=== PATIENT | female | born 1970 | race Caucasian/White ===

== ENCOUNTER → 2019-08-15 | Outpatient (CLI) | payer OTHER ==
[~2019-08-15] MED LIST: PERFLUTREN PROTEIN-A MICROSPHR 0.22 MG/ML 3 ML VIAL. IV ONE; REGADENOSON 0.4 MG/5 ML DISP.SYRIN. IV ONE
--- NOTE | 2019-08-18 07:09 | RAD ---
MR#: [id number] Account#: Date of Study: 08/16/2019 Ordering Physician: Referring Physician: ROBERTO GILLILAND Tech: RT Karena WoodallR) (N) APPROVED REPORT Test Type: Pharmacological Stress Nurse/Tech: Jazz Young RN Test Indications: Pre-Op Clearance for gastric bypass Cardiac History: Hypertension, High cholesterol, smoker Medications: See Electronic Medical Record Medical History: See Electronic Medical Record Resting ECG: ST Resting Heart Rate: 100 bpm Resting Blood Pressure: 141/72mmHg Pretest Chest Pain: No chest pain Nurse/Tech Notes S1S2, lungs CTA Consent: The procedure was explained to the patient in lay terms. Informed consent was witnessed. Serg eout was entered into [facility]. History and Stress Test performed by SEBASITEN Maldonado, EDINSON (R) (N) Pharm. Details Pharmacologic stress testing was performed using 0.4mg per 5ml of regadenoson given intravenously ove r 7-10 seconds. Stress Symptoms Dyspnea POST EXERCISE Reason for Termination: Infusion complete Max HR: 122 bpm Max Blood Pressure: 136/65mmHg Blood Pressure response to exercise: Normal blood pressure response during stress. Heart Rate response to exercise: Normal Chest Pain: No. Arrhythmia: No. ST Change: No. INTERPRETATION Stress EKG Conclusion: Baseline EKG showed sinus rhythm. No ischemic changes at peak stress. No arr hythmias. Imaging Protocol IMAGE PROTOCOL: Rest Tc-99m/stress Tc-99m 1 day Rest: Stress: Viability: Radiopharm.Tc99m LrxxkoexjWb89g Sestamibi Mmrs52aMu 34mCi Duration 15min. 15min. Img Date 08/15/2019 08/16/2019 Inj-Img Wvgy38sju. 60min. Rest Admin Site:IV - Right HandAdministrator:SEBASTIEN Maldonado ARRT (R)(N) Stress Admin Site: IV - Right HandAdministrator: SEBASTIEN Maldonado ARRT (R)(N) STRESS DATA End Diast. Vol.105.0mlAv. Heart Watd537.0bpm End Syst. Vol.28.0mlCO Index BSA0.0L/min Myocardial Ymoq762.0gEject. Kkvuanvc68.0% Stress Rates Pk. Fill Rate5.60EDV/secLVtime Pk. Fill 150.43msec Pk. Empty Rate4.87ESV/secLVtime Pk. Eject58.93msec 1/3 Pk. Fill0.40EDV/sec Stress Scores Regional WT1.00Summed WT6.00 Regional WM0.00Summed WM0.00 LV Perfusion Scintigraphic images showed fixed anterior wall defect most probably breast attenuation artifact. No other fixed or reversible defects seen. Wall Motion Normal left ventricle systolic function with ejection fraction calculated at 73%. LV Perf. Quant 17 Seg. SSS7.00 17 Seg. SRS10.00 17 Seg. SDS1.00 Stress Defect Extent (% LAD)13.10Rest Defect Extent (% LAD)45.00Rev. Defect Extent (% LAD)0.60 Stress Defect Extent (% LCX) 13.80Rest Defect Extent (% LCX)7.50Rev. Defect Extent (% LCX)2.50 Stress Defect Extent (% RCA)0.00Rest Defect Extent (% RCA)0.00Rev. Defect Extent (% RCA)0.00 Stress Defect Extent (% DE)10.20Rest Defect Extent (% DE)18.90Rev. Defect Extent (% DE)2.00 Conclusion 1. Regadenoson cardioisotope stress test showed breast attenuation artifact without any evidence of i schemia or infarct. 2. Normal left ventricular systolic function with ejection fraction calculated at 73%. 3. Low risk for cardiac events. Signed by : Mike Andres, Electronically Approved : 08/16/2019 12:32:43
== END | disposition home or self-care (01) ==
LOC: NM 07:45
PROVIDERS: ATTEND Internal Medicine Cardiovascular Disease
DX: Z01.810 Encounter for preprocedural cardiovascular examination (principal); R06.00 Dyspnea, unspecified
CPT/HCPCS: 78452; A9500; J2785

== ENCOUNTER → 2019-08-16 | Outpatient (CLI) | payer OTHER ==
[~2019-08-16] MED LIST changes: -REGADENOSON 0.4 MG/5 ML DISP.SYRIN. IV ONE
--- NOTE | 2019-08-16 10:26 | CARD ---
MR#: [id number] Date of Study: 08/16/2019 Ordering Physician: REGAN MEJIA, Referring Physician: Robbie FLOWERS: Veronika Sanchez APPROVED REPORT EXAM: Two-dimensional and M-mode echocardiogram with Doppler and color Doppler. Other Information Quality : PoorHR: 93bpm INDICATION Pre-Op Non STEMI Echo Enhancing Agent Indication: Endocardial border delineation Agent/Amount Used: Optison 2mL 2D DIMENSIONS Left Atrium(2D)2.9 (1.6-4.0cm)Aortic Root(2D)2.1 (2.0-3.7cm) LVOT Diameter1.6 (1.8-2.4cm) Aortic Valve AoV Peak John.131.8cm/sAoV VTI26.2cm AO Peak GR.6.9mmHgLVOT Peak John.132.5cm/s AO Mean GR.4mmHgAVA (VMAX)2.03cm2 Mitral Valve MV E Hljuvkiy29.5cm/sMV E Peak Gr.4mmHg MV DECEL [id number] A Ycdvnnsv47.5cm/s MV E Mean Gr.2mmHgE/A Ratio0.9 Pulmonary Valve PV Peak Nvnyjfun50.9cm/s Tricuspid Valve RAP [id number] LEFT VENTRICLE The left ventricle is normal size. There is normal left ventricular wall thickness. The left ventricu lar systolic function is normal and the ejection fraction is within normal range. The Ejection Fracti on is 55-60%. There is normal LV segmental wall motion. Transmitral Doppler flow pattern is Grade I-a bnormal relaxation pattern. RIGHT VENTRICLE The right ventricle is normal size. The right ventricular systolic function is normal. ATRIA The left atrium size is normal. The right atrium size is normal. AORTIC VALVE The aortic valve is not well visualized. Doppler and Color Flow revealed no significant aortic regurg itation. There is no significant aortic valvular stenosis. MITRAL VALVE The mitral valve is normal in structure and function. There is no mitral valve stenosis. Doppler and Color-flow revealed trace to mild mitral regurgitation. TRICUSPID VALVE The tricuspid valve is not well visualized. Doppler and Color Flow revealed trace to mild tricuspid r egurgitation. PULMONIC VALVE The pulmonic valve is not well visualized. Doppler and Color Flow revealed no pulmonic valvular regur gitation. GREAT VESSELS The aortic root is normal in size. The ascending aorta is normal in size. The IVC was not visualized. PERICARDIAL EFFUSION There is no pleural effusion. There is no evidence of significant pericardial effusion. Critical Notification Critical Value: No <Conclusion> The left ventricle is normal size. The left ventricular systolic function is normal and the ejection fraction is within normal range. The Ejection Fraction is 55-60%. Doppler and Color Flow revealed no significant aortic regurgitation. There is no significant aortic valvular stenosis. Doppler and Color-flow revealed trace to mild mitral regurgitation. Doppler and Color Flow revealed trace to mild tricuspid regurgitation. Signed by : Bao Jarrett MD Electronically Approved : 08/16/2019 10:26:27
== END | disposition home or self-care (01) ==
LOC: ECHO 07:34
PROVIDERS: ATTEND Internal Medicine Cardiovascular Disease
DX: Z01.810 Encounter for preprocedural cardiovascular examination (principal); I08.1 Rheumatic disorders of both mitral and tricuspid valves
CPT/HCPCS: 93017; C8929; Q9956; 96376

== ENCOUNTER 2021-10-11 04:50 | Emergency (ER) | payer SELFPAY ==
[~2021-10-11] VITALS: Ht 162.6 cm; Wt 77.3 kg
--- NOTE | 2021-10-11 08:07 | ED.ADGEN ---
General Adult EDM: Chief Complaint: ABDOMINAL PAIN HPI: HPI: Patient is a 50-year-old female who arrives ambulatory to the emergency department complaining of abdominal pain. Patient reports her pain began at approximately 2:00 this morning and has progressed since that time. Patient states that her pain is in the region of her diaphragm. Patient also states that her ovaries feel as if they are on fire. Patient states her pain is not subsided since this time and she is concerned. Despite her symptoms, she denies any fevers. She further denies any nausea or vomiting. Additionally she denies any diarrhea. Patient states if she sits upright her pain is worsened. She does deny however any chest pain. She is awake, alert and uncomfortable appearing. Review of Systems: Review of Systems: Constitutional: Denies fever or chills. [] Eyes: Denies change in visual acuity. [] HENT: Denies nasal congestion or sore throat. [] Respiratory: Denies cough or shortness of breath. [] Cardiovascular: Denies chest pain or edema. [] GI: Reports abdominal pain. Denies nausea, vomiting, bloody stools or diarrhea. [] : Denies dysuria. [] Musculoskeletal: Denies back pain or joint pain. [] Integument: Denies rash. [] Neurologic: Denies headache, focal weakness or sensory changes. [] Endocrine: Denies polyuria or polydipsia. [] Lymphatic: Denies swollen glands. [] Psychiatric: Denies depression or anxiety. [] Current Medications: Current Medications Medications (Trade) Dose Ordered Sig/Kelton Start Time Stop Time Status Last Admin Dose Admin Info (CONTRAST GIVEN -- Rx MONITORING) 1 each PRN DAILY PRN 10/11/21 09:15 10/13/21 09:14 Iohexol (Omnipaque 300 Mg/ml) 75 ml 1X ONCE 10/11/21 09:15 10/11/21 09:16 DC 10/11/21 09:22 60 ML Morphine Sulfate (Morphine Sulfate) 4 mg PRN Q2HR PRN 10/11/21 10:00 10/12/21 09:59 Multivitamins 10 ml/Thiamine HCl 100 mg/Folic Acid 1 mg/Sodium Chloride 1,011.2 ml @ 1,000.088 mls/hr 1X ONCE 10/11/21 12:00 10/11/21 13:00 10/11/21 11:48 1,000.088 MLS/HR Ondansetron HCl (Zofran) 4 mg PRN Q8HRS PRN 10/11/21 10:00 10/12/21 09:59 Piperacillin Sod/ Tazobactam Sod 4.5 gm/Dextrose 100 ml @ 200 mls/hr 1X ONCE 10/11/21 08:30 10/11/21 08:59 DC 10/11/21 08:48 200 MLS/HR Sodium Chloride 1,000 ml @ 1,000 mls/hr 1X ONCE 10/11/21 11:00 10/11/21 11:59 DC 10/11/21 11:27 1,000 MLS/HR Allergies: Allergies: Allergies Coded Allergies Type Severity Reaction Last Updated Verified tetanus toxoid, adsorbed Allergy Intermediate 08/16/19 Yes Physical Exam: PE: Constitutional: Uncomfortable appearing. Well developed, well nourished, non- toxic appearance. [] HENT: Normocephalic, atraumatic, bilateral external ears normal, oropharynx moist, no oral exudates, nose normal. [] Eyes: PERRLA, EOMI, conjunctiva normal, no discharge. [] Neck: Normal range of motion, no tenderness, supple, no stridor. [] Cardiovascular:Heart rate regular rhythm, no murmur [] Lungs & Thorax: Bilateral breath sounds clear to auscultation [] Abdomen: Diffuse tenderness to palpation. Bowel sounds normal, soft, no masses, no pulsatile masses. [] Skin: Warm, dry, no erythema, no rash. [] Back: No tenderness, no CVA tenderness. [] Extremities: No tenderness, no cyanosis, no clubbing, ROM intact, no edema. [] Neurologic: Alert and oriented X 3, normal motor function, normal sensory function, no focal deficits noted. [] Psychologic: Affect normal, judgement normal, mood normal. [] Current Patient Data: Labs: Laboratory Tests Test 10/11/21 07:53 10/11/21 08:06 10/11/21 08:28 Urine Collection Type Unknown Urine Color Dee Urine Clarity Clear Urine pH 5.5 (<5.0-8.0) Urine Specific [place] 1.025 (1.000-1.030) Urine Protein 30 mg/dL (NEG-TRACE) Urine Glucose (UA) Negative mg/dL (NEG) Urine Ketones (Stick) Trace mg/dL (NEG) Urine Blood Negative (NEG) Urine Nitrite Positive (NEG) Urine Bilirubin Small (NEG) Urine Urobilinogen Dipstick 0.2 mg/dL (0.2 mg/dL) Urine Leukocyte Esterase Negative (NEG) Urine RBC 0 /HPF (0-2) Urine WBC 0 /HPF (0-4) Urine Squamous Epithelial Cells Many /LPF Urine Bacteria Many /HPF (0-FEW) POC Urine HCG, Qualitative Hcg negative (Negative) White Blood Count 19.2 x10^3/uL (4.0-11.0) H Red Blood Count 5.11 x10^6/uL (3.50-5.40) Hemoglobin 16.1 g/dL (12.0-15.5) H Hematocrit 48.2 % (36.0-47.0) H Mean Corpuscular Volume 94 fL (79-100) Mean Corpuscular Hemoglobin 32 pg (25-35) Mean Corpuscular Hemoglobin Concent 33 g/dL (31-37) Red Cell Distribution Width 13.2 % (11.5-14.5) Platelet Count 280 x10^3/uL (140-400) Neutrophils (%) (Auto) 91 % (31-73) H Lymphocytes (%) (Auto) 4 % (24-48) L Monocytes (%) (Auto) 4 % (0-9) Eosinophils (%) (Auto) 0 % (0-3) Basophils (%) (Auto) 0 % (0-3) Neutrophils # (Auto) 17.5 x10^3/uL (1.8-7.7) H Lymphocytes # (Auto) 0.8 x10^3/uL (1.0-4.8) L Monocytes # (Auto) 0.8 x10^3/uL (0.0-1.1) Eosinophils # (Auto) 0.0 x10^3/uL (0.0-0.7) Basophils # (Auto) 0.0 x10^3/uL (0.0-0.2) Segmented Neutrophils % 88 % (35-66) H Band Neutrophils % 4 % (0-9) Lymphocytes % 4 % (24-48) L Monocytes % 4 % (0-10) Platelet Estimate Adequate (ADEQUATE) Sodium Level 140 mmol/L (136-145) Potassium Level 4.6 mmol/L (3.5-5.1) Chloride Level 101 mmol/L (98-107) Carbon Dioxide Level 26 mmol/L (21-32) Anion Gap 13 (6-14) Blood Urea Nitrogen 15 mg/dL (7-20) Creatinine 1.0 mg/dL (0.6-1.0) Estimated GFR (Cockcroft-Gault) 58.9 BUN/Creatinine Ratio 15 (6-20) Glucose Level 181 mg/dL (70-99) H Lactic Acid Level 2.8 mmol/L (0.4-2.0) H Calcium Level 9.4 mg/dL (8.5-10.1) Total Bilirubin 0.7 mg/dL (0.2-1.0) Aspartate Amino Transferase (AST) 14 U/L (15-37) L Alanine Aminotransferase (ALT) 26 U/L (14-59) Alkaline Phosphatase 72 U/L (46-116) Troponin I High Sensitivity 4 ng/L (4-50) Total Protein 8.0 g/dL (6.4-8.2) Albumin 4.2 g/dL (3.4-5.0) Albumin/Globulin Ratio 1.1 (1.0-1.7) Lipase 40 U/L (73-393) L Serum Test, Qualitative Negative (NEG) Laboratory Tests 10/11/21 08:28 Laboratory Tests 10/11/21 08:28 Vital Signs: Vital Signs Date Time Temp Pulse Resp B/P (MAP) Pulse Ox O2 Delivery O2 Flow Rate FiO2 10/11/21 10:30 106 24 124/65 (84) 97 Room Air 10/11/21 08:07 99.1 99.1 EKG: EKG: EKG was obtained at 8:16 AM and reveals a sinus tachycardia with a ventricular t o 121 bpm. There does appear to be ST depression in the anterior leads this is very possibly evidence of ischemia. There is no acute STEMI present. [] Heart Score: C/O Chest Pain: No Risk Factors: Risk Factors: DM, Current or recent (<one month) smoker, HTN, HLP, family history of CAD, obesity. Risk Scores: Score 0 - 3: 2.5% MACE over next 6 weeks - Discharge Home Score 4 - 6: 20.3% MACE over next 6 weeks - Admit for Clinical Observation Score 7 - 10: 72.7% MACE over next 6 weeks - Early Invasive Strategies Radiology/Procedures: Radiology/Procedures: [][facility] [id number] [place] [address] IMAGING REPORT Signed PATIENT: SINTIA ALBARRAN ACCOUNT: [id number] : 1970 LOCATION: ER AGE: 50 SEX: F EXAM STATUS: REG ER ORD. PHYSICIAN: RICKIE MUELLER DO REASON: Pain , hx of gastric bypass 2 years ago PROCEDURE: PORTABLE CHEST 1V XR CHEST 1V 10/11/2021 8:06 AM INDICATION: Pain with history of gastric bypass COMPARISON: None available TECHNIQUE: Portable frontal view of the chest is provided. FINDINGS: The cardiomediastinal silhouette is within normal limits. There is elevation the left hemidiaphragm. There is subsegmental atelectasis at the left lung base. There are no significant pleural effusions. There is no pulmonary vascular congestion. No pneumothorax. No suspicious osseous abnormality. Moderate to large volume pneumoperitoneum. IMPRESSION: Moderate to large volume pneumoperitoneum. Further evaluation with CT abdomen/pelvis with contrast could be of benefit. There is no acute cardiopulmonary process. FOR INTERNAL CODING PURPOSES Critical result: Findings discussed with RICKIE MUELLER DO at 10/11/2021 8:23 AM. RESULT CODE: (C) Electronically signed by: Taras Khan MD (10/11/2021 8:23 AM) [id number] DICTATED and SIGNED BY: TARAS KHAN MD DATE: 10/11/21 [id number] [facility] [address] [place] [address] IMAGING REPORT Signed PATIENT: SINTIA ALBARRAN ACCOUNT: [id number] : 1970 LOCATION: ER AGE: 50 SEX: F EXAM STATUS: REG ER ORD. PHYSICIAN: RICKIE MUELLER DO REASON: Pain, free air PROCEDURE: CT ABD PELV W/ IV CONTRST ONLY INDICATION: Reason: Pain, free air / Spl. Instructions: omni 300 60ml / History: COMPARISON: Chest x-ray from same day TECHNIQUE: Axial CT images were obtained through the abdomen and pelvis with intravenous contrast. One or more of the following individualized dose reduction techniques were utilized for this examination: 1. Automated exposure control; 2. Adjustment of the mA and/or kV according to patient size; 3. Use of iterative reconstruction technique. FINDINGS: Linear opacity partially visualized right chest base. Vascular: Atherosclerotic disease is seen throughout. Hepatobiliary: Liver is low density which can be seen with fatty infiltration. The liver appears enlarged. Pancreas: No peripancreatic edema. Spleen: Spleen unremarkable. Renal/Bladder: Urinary bladder has minimal urine within it at time of exam. No hydronephrosis. Gastrointestinal: Post gastric bypass changes.Moderate amount of intraperitoneal free air is identified. There is also some fluid seen within the abdomen and pelvis which does not appear entirely simple density. There is a defect in the left hemidiaphragm with a portion of the left side of the colon as well as the spleen and stomach extending into the left hemithorax with the superior extent outside of the field of view there is also some wall thickening seen at the stomach near the suture line with some adjacent free air and edema to the fat. Degenerative changes the hips and spine. IMPRESSION: * Intraperitoneal free air is identified as well as free fluid with the fluid appearing higher than simple density which could be secondary to debris within. There is also some prominence of the peritoneum which can be seen with peritonitis. This constellation of findings is concerning for bowel perforation. Possible sources would include perforated ulcer as well as dehiscence of suture line since the patient does have postbypass changes and there is adjacent edema and free fluid to the fat and wall thickening of the stomach. * Large defect at the left hemidiaphragm with air-filled dilated colon seen extending into the left hemithorax as well as the spleen and portion of the pancreas and stomach seen extending to the left chest base with mass effect on the mediastinum. Given this finding an additional possible consideration would include perforation of the stomach or colon with causes such as obstruction associated with the hernia within the differential as well. Report was called to the emergency department at 9:49 AM on date of exam. Electronically signed by: Reggie Jon MD (10/11/2021 9:55 AM) [id number] DICTATED and SIGNED BY: REGGIE JON MD DATE: 10/11/21 [id number] Course & Med Decision Making: Course & Med Decision Making Pertinent Labs and Imaging studies reviewed. (See chart for details) The patient is septic according to lab work. CT did reveal a perforation within her abdominal cavity. I did speak with our surgeon with respect to admitting her and he raised concerns that because she is a bariatric patient she was much more complex and should be transferred to the site where she had her surgery. I did learn that she had her surgery through [facility] and as such I contacted her surgeon and spoke with Dr. Miller who is Dr. Jean's partner. Dr. Miller politely agreed to accept the patient for ongoing treatment and likely surgical intervention. The patient has been made aware of this and has agreed to this. Currently she is awake, alert and nontoxic-appearing. She is stable and awaiting transport. [] Vishalon Disclaimer: Dragjosi Disclaimer: This electronic medical record was generated, in whole or in part, using a voice recognition dictation system. Departure Departure Impression: Primary Impression: Perforated abdominal viscus Additional Impression: Severe sepsis Disposition: 02 SHORT TERM HOSPITAL Admitting Physician: Malik Goldstein Condition: STABLE Referrals: MALIK GOLDSTEIN MD (PCP) Problem Qualifiers RICKIE MUELLER DO Oct 11, 2021 08:07
[2021-10-11] MEDS ORDERED: IV NORMAL SALINE 1000ML BAG 1,000 ML IV SCH (08:15)
[2021-10-11 08:16] LABS: BILIRUBIN,URINE SMALL (NEG); CLARITY,URINE CLEAR; COLOR,URINE AMBER; NITRITE,URINE POSITIVE (NEG); PH,URINE 5.5 (<5.0-8.0); PROTEIN,URINE 30 mg/dL (NEG-TRACE); UROBILINOGEN,URINE 0.2 mg/dL (0.2 mg/dL)
--- NOTE | 2021-10-11 08:25 | RAD ---
XR CHEST 1V 10/11/2021 8:06 AM INDICATION: Pain with history of gastric bypass COMPARISON: None available TECHNIQUE: Portable frontal view of the chest is provided. FINDINGS: The cardiomediastinal silhouette is within normal limits. There is elevation the left hemidiaphragm. There is subsegmental atelectasis at the left lung base. There are no significant pleural effusions. There is no pulmonary vascular congestion. No pneumothora x. No suspicious osseous abnormality. Moderate to large volume pneumoperitoneum. IMPRESSION: Moderate to large volume pneumoperitoneum. Further evaluation with CT abdomen/pelvis with contrast co uld be of benefit. There is no acute cardiopulmonary process. FOR INTERNAL CODING PURPOSES Critical result: Findings discussed with RICKIE MUELLER DO at 10/11/2021 8:23 AM. RESULT CODE: (C) Electronically signed by: Naheed Lopez MD (10/11/2021 8:23 AM) [id number]
[2021-10-11] MEDS ORDERED: PIPERACILLIN/TAZOBACTAM 4.5 GM in IV DEXTROSE 5% 100ML 100 ML IV ONE (08:30)
[2021-10-11 08:31] LABS: BACTERIA,URINE MANY /HPF (0-FEW); RBC,URINE 0 /HPF (0-2); WBC,URINE 0 /HPF (0-4)
[2021-10-11] MEDS: MORPHINE SULFATE 4 MG/ML INJ. IV/SQ PRN ×3 (08:31→11:35)
[2021-10-11 08:50] LABS: BASO % 0 % (0-3); EOS % 0 % (0-3); HEMATOCRIT 48.2 % (36.0-47.0); HEMOGLOBIN 16.1 g/dL (12.0-15.5); LYMPH # 0.8 x10^3/uL (1.0-4.8); LYMPH % 4 % (24-48); MEAN CORPUSCULAR HEMOGLOBIN 32 pg (25-35); MEAN CORPUSCULAR HGB CONC 33 g/dL (31-37); MEAN CORPUSCULAR VOLUME 94 fL (79-100); MONO # 0.8 x10^3/uL (0.0-1.1); MONO % 4 % (0-9); NEUT # 17.5 x10^3/uL (1.8-7.7); NEUT % 91 % (31-73); PLATELET COUNT 280 x10^3/uL (140-400); RED BLOOD COUNT 5.11 x10^6/uL (3.50-5.40); RED CELL DISTRIBUTION WIDTH 13.2 % (11.5-14.5); WHITE BLOOD COUNT 19.2 x10^3/uL (4.0-11.0)
[2021-10-11 08:52] LABS: PREG TEST PT QUAL NEGATIVE (NEG)
[2021-10-11 09:10] LABS: ALBUMIN 4.2 g/dL (3.4-5.0); ALBUMIN/GLOBULIN RATIO 1.1 (1.0-1.7); CALCIUM 9.4 mg/dL (8.5-10.1); GFR 58.9; POTASSIUM 4.6 mmol/L (3.5-5.1); TOTAL BILIRUBIN 0.7 mg/dL (0.2-1.0)
[2021-10-11] MEDS ORDERED: IOHEXOL 300 MG/ML 100ML VIAL. IV ONE (09:15)
[2021-10-11] MEDS ORDERED: CONTRAST GIVEN. MC PRN (09:15)
--- NOTE | 2021-10-11 09:58 | RAD ---
INDICATION: Reason: Pain, free air / Spl. Instructions: omni 300 60ml / History: COMPARISON: Chest x-ray from same day TECHNIQUE: Axial CT images were obtained through the abdomen and pelvis with intravenous contrast. One or more of the following individualized dose reduction techniques were utilized for this examinat ion: 1. Automated exposure control; 2. Adjustment of the mA and/or kV according to patient size; 3 . Use of iterative reconstruction technique. FINDINGS: Linear opacity partially visualized right chest base. Vascular: Atherosclerotic disease is seen throughout. Hepatobiliary: Liver is low density which can be seen with fatty infiltration. The liver appears enla rged. Pancreas: No peripancreatic edema. Spleen: Spleen unremarkable. Renal/Bladder: Urinary bladder has minimal urine within it at time of exam. No hydronephrosis. Gastrointestinal: Post gastric bypass changes.Moderate amount of intraperitoneal free air is identifi ed. There is also some fluid seen within the abdomen and pelvis which does not appear entirely simple density. There is a defect in the left hemidiaphragm with a portion of the left side of the colon as well as the spleen and stomach extending into the left hemithorax with the superior extent outside o f the field of view there is also some wall thickening seen at the stomach near the suture line with some adjacent free air and edema to the fat. Degenerative changes the hips and spine. IMPRESSION: * Intraperitoneal free air is identified as well as free fluid with the fluid appearing higher than simple density which could be secondary to debris within. There is also some prominence of the perit oneum which can be seen with peritonitis. This constellation of findings is concerning for bowel perf oration. Possible sources would include perforated ulcer as well as dehiscence of suture line since t he patient does have postbypass changes and there is adjacent edema and free fluid to the fat and wal l thickening of the stomach. * Large defect at the left hemidiaphragm with air-filled dilated colon seen extending into the left hemithorax as well as the spleen and portion of the pancreas and stomach seen extending to the left c hest base with mass effect on the mediastinum. Given this finding an additional possible consideratio n would include perforation of the stomach or colon with causes such as obstruction associated with t he hernia within the differential as well. Report was called to the emergency department at 9:49 AM o n date of exam. Electronically signed by: Kody Farnsworth MD (10/11/2021 9:55 AM) [id number]
[2021-10-11] MEDS ORDERED: MORPHINE SULFATE 4 MG/ML INJ. IVP ONE (10:00)
[2021-10-11] MEDS ORDERED: MORPHINE SULFATE 4 MG/ML INJ. IVP PRN (10:00)
[2021-10-11] MEDS ORDERED: ONDANSETRON PF 4 MG/2 ML VIAL. IVP PRN (10:00)
--- NOTE | 2021-10-11 10:16 | EKG ---
[facility] [address] [place] [address] Test Date: 2021-10-11 Test Time: 08:16:41 Pat Name: SINTIA ALBARRAN Department: Room: Gender: F Job Spotter: : 1970 Requested By: RICKIE MUELLER Order Number: [id number] Reading MD: Justin Wheeler MD Measurements Intervals [place] Rate: 121 P: 6 [place]: 116 QRS: 55 QRSD: 72 T: -125 QT: 290 QTc: 414 Interpretive Statements SINUS TACHYCARDIA LVH WITH REPOLARIZATION ABNORMALITY QRS(T) CONTOUR ABNORMALITY CONSIDER ANTEROSEPTAL MYOCARDIAL DAMAGE ABNORMAL ECG Electronically Signed On 10-11-2021 10:41:33 FUND ACCOUNTING MANAGER by Justin Wheeler MD
[2021-10-11] MEDS ORDERED: IV NORMAL SALINE 1000ML BAG 1,000 ML IV ONE (11:00)
[2021-10-11 11:05] LABS: % BANDS 4 % (0-9); % LYMPHS 4 % (24-48); % MONOS 4 % (0-10); % SEGS 88 % (35-66); PLT ESTIMATE ADEQUATE (ADEQUATE)
[2021-10-11] MEDS ORDERED: MULTIVIT INFUSN,ADULT 4,VIT K 10 ML, THIAMINE INJ 100 MG, FOLIC ACID INJ 1 MG in IV NOR... IV ONE (12:00)
[2021-10-11 12:22] VITALS: BP 119/67
== END 2021-10-11 13:00 | disposition short-term general hospital (02) ==
LOC: ER 04:50
DX: A41.9 Sepsis, unspecified organism (principal); R65.20 Severe sepsis without septic shock; K63.1 Perforation of intestine (nontraumatic); Z20.822 Contact with and (suspected) exposure to COVID-19; Z88.7 Allergy status to serum and vaccine
CPT/HCPCS: 36415; 71045; 74177; 80053; 81001; 81025; 83605; 83690; 84484; 84703; 85007; 85025; 87040; 87086; 87426; 93005; 96365; 96367; 96375; 96376; 99285; J2270; J2543; J3411; J3490; J7030; J7060; Q9967; U0003; U0005